=== PATIENT | male | born 1990 | race Hispanic/Latino ===

== ENCOUNTER 2019-11-12 18:06 | Inpatient (IN) | payer SELFPAY ==
[2019-11-12] MEDS ORDERED: ACETAMINOPHEN 325 MG TABLET ONE (19:45)
[2019-11-12] MEDS ORDERED: MORPHINE 2 MG/ML SYR ONE (19:46)
[2019-11-12] MEDS ORDERED: ONDANSETRON 4 MG/2 ML VIAL ONE ×2 (19:46→22:33)
[2019-11-12] MEDS ORDERED: NA CHLORIDE 0.9% 2,000 ML ONE (19:46)
[2019-11-12 20:04] LABS: Urine Blood 1+ (NEG); Urine Glucose NEGATIVE (NEG); Urine Protein 1+ (NEG); Urine Specific Gravity 1.025 (1.005-1.030)
[2019-11-12 20:06] LABS: Albumin 3.5 g/dL (3.4-5.0); Bilirubin Direct 0.2 mg/dL (0-0.2); Bilirubin Total 0.7 mg/dL (0.2-1.0); Potassium 4.2 mmol/L (3.5-5.1); Protein, Total 9.1 g/dL (6.4-8.2)
[2019-11-12 20:21] LABS: Absolute Lymphocytes (CBC) 1.8 K/uL (0.7-4.9); Basophils % 0.4 % (0-1.3); Hematocrit 39.9 % (39.6-49.0); Lymphocytes % 9.2 % (15.3-44.8); RBC Red Blood Cell Count 4.35 M/uL (4.33-5.43)
--- NOTE | 2019-11-12 20:52 | RAD REPORT ---
EXAM DESCRIPTION: CTAbdomen Pelvis W Contrast - 11/12/2019 8:31 pm CLINICAL HISTORY: Abdominal pain. ABD PAIN COMPARISON: No comparisons TECHNIQUE: Biphasic CT imaging of the abdomen and pelvis was performed with 100 ml non-ionic IV cont rast. All CT scans are performed using dose optimization technique as appropriate and may include automated exposure control or mA/KV adjustment according to patient size. FINDINGS: The lung bases are clear. The liver, spleen, pancreas, adrenal glands and kidneys are within normal limits. No bowel obstruction, free air, free fluid or abscess. There is moderate inflammation adjacent to sev eral diverticula in the descending colon. There is thickening of the adjacent fascia with small perid iverticular abscess is present measuring 14 x 7 mm within the fascia abutting the left psoas muscle. The findings likely indicate diverticulitis. The appendix is normal. No evidence of significant lymp hadenopathy. No suspicious bony findings. IMPRESSION: Moderate diverticulitis of the descending colon is suspected several small peridiverticu lar adjacent abscesses within the fascia. The small abscesses would not be amenable to percutaneous d rainage.
--- NOTE | 2019-11-12 20:56 | RAD REPORT ---
EXAM DESCRIPTION: RAD - Chest Single View - 11/12/2019 8:31 pm CLINICAL HISTORY: ABDOMINAL DISTENTION Chest pain. COMPARISON: No comparisons FINDINGS: Portable technique limits examination quality. The lungs are grossly clear. The heart is normal in size. No displaced fractures. IMPRESSION: No acute intrathoracic process suspected.
--- NOTE | 2019-11-12 21:29 | EDPHYS ---
Physician Documentation [facility] Name: Vlad Ramos Age: 29 yrs Sex: Male : 1990 Arrival Date: 11/12/2019 Time: 18:10 Bed 14 Private MD: ED Physician Patrick Ken HPI: 11/11 19:32 This 29 yrs old Male presents to ER via Ambulatory with complaints of sheree Abdominal Pain. 19:32 The patient presents with abdominal pain in the upper abdomen, in the left upper sheree quadrant, in the left lower quadrant, abdominal distention in the upper abdomen, in the lower abdomen. Onset: The symptoms/episode began/occurred 5 day(s) ago. The symptoms do not radiate. Associated signs and symptoms: none. The symptoms are described as constant, crampy. Modifying factors: The symptoms are alleviated by nothing, the symptoms are aggravated by movement, pressure. Severity of pain: At its worst the pain was moderate in the emergency department the pain is unchanged. The patient has not experienced similar symptoms in the past. Historical: - Allergies: 18:24 No Known Allergies; ll1 - PSHx: 18:24 None; ll1 - Immunization history:: Adult Immunizations up to date, Flu vaccine is up to date. - Social history:: Smoking status: Patient denies any tobacco usage or history of. Patient/guardian denies using alcohol, street drugs, tobacco products. - Family history:: not pertinent. ROS: 19:32 Eyes: Negative for injury, pain, redness, and discharge, ENT: Negative for injury, sheree pain, and discharge, Neck: Negative for injury, pain, and swelling, Cardiovascular: Negative for chest pain, palpitations, and edema, Respiratory: Negative for shortness of breath, cough, wheezing, and pleuritic chest pain, Back: Negative for injury and pain, : Negative for injury, bleeding, discharge, and swelling, MS/Extremity: Negative for injury and deformity, Skin: Negative for injury, rash, and discoloration, Neuro: Negative for headache, weakness, numbness, tingling, and seizure, Psych: Negative for depression, anxiety, suicide ideation, homicidal ideation, and hallucinations, Allergy/Immunology: Negative for hives, rash, and allergies, Endocrine: Negative for neck swelling, polydipsia, polyuria, polyphagia, and marked weight changes, Hematologic/Lymphatic: Negative for swollen nodes, abnormal bleeding, and unusual bruising. 19:32 Constitutional: Positive for fever, malaise. 19:32 Abdomen/GI: Positive for abdominal pain, of the left upper quadrant and left lower quadrant. Exam: 19:32 Head/Face: Normocephalic, atraumatic. Eyes: Pupils equal round and reactive to light, sheree extra-ocular motions intact. Lids and lashes normal. Conjunctiva and sclera are non-icteric and not injected. Cornea within normal limits. Periorbital areas with no swelling, redness, or edema. ENT: Nares patent. No nasal discharge, no septal abnormalities noted. Tympanic membranes are normal and external auditory canals are clear. Oropharynx with no redness, swelling, or masses, exudates, or evidence of obstruction, uvula midline. Mucous membranes moist. Neck: Trachea midline, no thyromegaly or masses palpated, and no cervical lymphadenopathy. Supple, full range of motion without nuchal rigidity, or vertebral point tenderness. No Meningismus. Chest/axilla: Normal chest wall appearance and motion. Nontender with no deformity. No lesions are appreciated. Respiratory: Lungs have equal breath sounds bilaterally, clear to auscultation and percussion. No rales, rhonchi or wheezes noted. No increased work of breathing, no retractions or nasal flaring. Back: No spinal tenderness. No costovertebral tenderness. Full range of motion. Male : Normal genitalia with no discharge or lesions. Skin: Warm, dry with normal turgor. Normal color with no rashes, no lesions, and no evidence of cellulitis. MS/ Extremity: Pulses equal, no cyanosis. Neurovascular intact. Full, normal range of motion. Neuro: Awake and alert, GCS 15, oriented to person, place, time, and situation. Cranial nerves II-XII grossly intact. Motor strength 5/5 in all extremities. Sensory grossly intact. Cerebellar exam normal. Normal gait. Psych: Awake, alert, with orientation to person, place and time. Behavior, mood, and affect are within normal limits. 19:32 Constitutional: The patient appears febrile. 19:32 Abdomen/GI: Inspection: abdomen appears normal, Bowel sounds: normal, Palpation: moderate abdominal tenderness, in the epigastric area, anterior aspect of left lateral abdomen, posterior aspect of left lateral abdomen, left upper quadrant and left lower quadrant, Liver: no appreciated palpable abnormalities, Hernia: not appreciated. Vital Signs: 18:19 BP 129 / 81; Pulse 121; Resp 19; Temp 101.2; Pulse Ox 97% ; Weight 76.2 kg; Height 5 ll1 ft. 8 in. (172.72 cm); Pain 6/10; 19:17 BP 131 / 85; Pulse 112; Resp 18; Temp 100.9; Pulse Ox 97% ; ll1 21:00 BP 127 / 76; Pulse 111; Resp 20; Pulse Ox 99% on R/A; vc 22:00 BP 126 / 78; Pulse 102; Resp 19; Pulse Ox 97% on R/A; vc 23:00 BP 117 / 74; Pulse 96; Resp 20; Temp 100.0(O); Pulse Ox 98% on R/A; vc 18:19 Body Mass Index 25.54 (76.20 kg, 172.72 cm) ll1 MDM: 19:11 Patient medically screened. [facility] 19:34 Data reviewed: vital signs, nurses notes, lab test result(s), radiologic studies, CT sheree scan, plain films. Data interpreted: credit collector: rate is 112 beats/min, rhythm is normal sinus rhythm, Pulse oximetry: on room air is 97 %. Test interpretation: by ED physician or midlevel provider: plain radiologic studies. Counseling: I had a detailed discussion with the patient and/or guardian regarding: the historical points, exam findings, and any diagnostic results supporting the discharge/admit diagnosis, lab results, radiology results, the need for further work-up and treatment in the hospital. Medication response: Zofran partially relieved the patient's nausea. 21:30 Differential diagnosis: appendicitis, bowel obstruction, cholecystitis, Cholelithiasis, sheree diverticulitis, Peritonitis, urinary tract infection. Physician consultation: Shen Ledbetter MD and will see patient in inpatient room. Transition of care: After a detail discussion of the patient's case, care is transferred to Justyna Hunter MD. ED course: dw dr ledbetter, give Rocephin push, start on levofloxacin and Flagyl , admit to dr hunter, consult me, explained plan to patient, voiced undestanding. 11/11 19:32 Order name: Basic Metabolic Panel; Complete Time: 20:52 [facility] 11/11 19:32 Order name: CBC with Diff [facility] 11/11 19:32 Order name: Hepatic Function; Complete Time: 20:52 [facility] 11/11 19:32 Order name: Lipase; Complete Time: 20:52 [facility] 11/11 19:32 Order name: Urine Culture [facility] 11/11 19:58 Order name: Urine Dipstick--Ancillary (enter results); Complete Time: 20:20 [facility] 11/11 19:32 Order name: Chest Single View XRAY; Complete Time: 21:25 [facility] 11/11 19:32 Order name: CT Abd/Pelvis - IV Contrast Only; Complete Time: 21:25 [facility] 11/11 21:58 Order name: CBC Smear Scan EDMD 11/11 21:58 Order name: Manual Differential [facility] 11/11 19:32 Order name: IV Saline Lock; Complete Time: 19:46 [facility] 11/11 19:32 Order name: Labs collected and sent; Complete Time: 19:46 [facility] 11/11 19:32 Order name: Urine Dipstick-Ancillary (obtain specimen); Complete Time: 19:46 [facility] 11/11 22:31 Order name: CONS Physician Consult [facility] 11/11 22:31 Order name: NPO EDMS Administered Medications: 19:52 Drug: NS 0.9% 1000 ml Route: IV; Rate: 1 bolus; Site: right antecubital; vc 19:52 Drug: Tylenol 650 mg Route: PO; vc 20:39 Follow up: Response: No adverse reaction vc 19:52 Drug: morphine 2 mg Route: IVP; Site: right antecubital; vc 20:39 Follow up: Response: No adverse reaction vc 19:54 Drug: Zofran (Ondansetron) 4 mg Route: IVP; Site: right antecubital; vc 20:39 Follow up: Response: No adverse reaction vc 20:24 Drug: NS 0.9% 1000 ml Route: IV; Rate: 1 bolus; Site: right antecubital; vc 22:25 Drug: levofloxacin 750 mg Volume: 150 ml; Route: IVPB; Infused Over: 90 mins; Site: vc right antecubital; 22:25 Drug: Flagyl 500 mg Volume: 100 ml; Route: IVPB; Rate: 200 ml/hr; Infused Over: 30 vc mins; Site: right antecubital; 22:30 Drug: Rocephin 2 grams Route: IV; Rate: per protocol; Site: right antecubital; vc 23:00 Follow up: IV Status: Completed infusion; IV Intake: 50ml vc 22:40 Drug: Zofran (Ondansetron) 4 mg Route: IVP; Site: right antecubital; vc 23:00 Follow up: Response: No adverse reaction vc Disposition: 11/12/19 21:29 Hospitalization ordered by Justyna Hunter for Inpatient Admission. Preliminary diagnosis are Abdominal tenderness, Fever, unspecified, Diverticulitis of large intestine with perforation and abscess without bleeding, Elevated white blood cell count. - Bed requested for Telemetry/MedSurg (Inpatient). - Status is Inpatient Admission. vc - Condition is Fair. - Problem is new. - Symptoms have improved. Signatures: Dispatcher [employer] EDMS Kenya Hernandez RN RN mw Anderson, Corey, MD MD cha Calcote, Vanessa, RN RN vc Lewis, Lynsay, RN RN ll1 Corrections: (The following items were deleted from the chart) 22:34 21:29 Hospitalization Ordered by Justyna Hutner MD for Inpatient Admission. Preliminary mw diagnosis is Abdominal tenderness; Fever, unspecified; Diverticulitis of large intestine with perforation and abscess without bleeding; Elevated white blood cell count. Bed requested for Telemetry/MedSurg (Inpatient). Status is Inpatient Admission. Condition is Fair. Problem is new. Symptoms have improved. [facility] 23:47 22:34 11/12/2019 21:29 Hospitalization Ordered by Justyna Hunter MD for Inpatient vc Admission. Preliminary diagnosis is Abdominal tenderness; Fever, unspecified; Diverticulitis of large intestine with perforation and abscess without bleeding; Elevated white blood cell count. Bed requested for Telemetry/MedSurg (Inpatient). Status is Inpatient Admission. Condition is Fair. Problem is new. Symptoms have improved. mw
--- NOTE | 2019-11-12 21:29 | ER ---
Nurse's Notes [facility] Name: Vlad Ramos Age: 29 yrs Sex: Male : 1990 Arrival Date: 11/12/2019 Time: 18:10 Bed 14 Private MD: Diagnosis: Abdominal tenderness;Fever, unspecified;Diverticulitis of large intestine with perforation and abscess without bleeding;Elevated white blood cell count Presentation: 11/11 18:19 Chief complaint: Patient states: LLQ/left flank pain for 10 days. Fever 100.7 at home. ll1 Had ultrasound, states the ultrasound that was negative for kidney stones. Coronavirus screen: Proceed with normal triage. Patient denies a cough. Patient denies shortness of breath or difficulty breathing. Patient denies measured and/or subjective temperature greater than 100.4F prior to today's visit. Patient denies travel on a cruise ship or to a country the [facility] currently lists as an affected area. Patient denies contact with known and/or suspected case of COVID-19. Ebola Screen: Patient denies travel to an Ebola-affected area in the 21 days before illness onset. Initial Sepsis Screen: Does the patient meet any 2 criteria? HR > 90 bpm. Does the patient have a suspected source of infection? No. Patient's initial sepsis screen is negative. Risk Assessment: Do you want to hurt yourself or someone else? Patient reports no desire to harm self or others. Onset of symptoms was November 02, 2019. 18:19 Method Of Arrival: Ambulatory [facility] 18:19 Acuity: BARRY 3 ll1 19:18 Initial Sepsis Screen: Does the patient meet any 2 criteria? Temp <36.0*C (96.8*F)) or ll1 > 38.3*C (100.9*F). HR > 90 bpm. Yes Does the patient have a suspected source of infection? Yes: Acute abdominal pain. 19:19 Note sepsis alert called at 1917 when brought back to room 14. ll1 Triage Assessment: 19:30 General: Appears in no apparent distress. uncomfortable, ill, Behavior is calm, vc cooperative, appropriate for age. Pain: Complains of pain in epigastric area and left lower quadrant and left upper quadrant Pain does not radiate. Pain currently is 10 out of 10 on a pain scale. Quality of pain is described as sharp, stabbing, Pain began 10 days Noted to be grimacing, guarding, moaning. 19:30 GI: Reports lower abdominal pain, upper abdominal pain, nausea. vc Historical: - Allergies: 18:24 No Known Allergies; ll1 - PSHx: 18:24 None; ll1 - Immunization history:: Adult Immunizations up to date, Flu vaccine is up to date. - Social history:: Smoking status: Patient denies any tobacco usage or history of. Patient/guardian denies using alcohol, street drugs, tobacco products. - Family history:: not pertinent. Screenin:30 Abuse screen: Denies threats or abuse. Nutritional screening: No deficits noted. vc Tuberculosis screening: No symptoms or risk factors identified. Fall Risk None identified. Assessment: 19:30 GI: Bowel sounds present X 4 quads. Abd is soft Abdomen is tender to palpation X 4 vc quads. Vital Signs: 18:19 BP 129 / 81; Pulse 121; Resp 19; Temp 101.2; Pulse Ox 97% ; Weight 76.2 kg; Height 5 ll1 ft. 8 in. (172.72 cm); Pain 6/10; 19:17 BP 131 / 85; Pulse 112; Resp 18; Temp 100.9; Pulse Ox 97% ; ll1 21:00 BP 127 / 76; Pulse 111; Resp 20; Pulse Ox 99% on R/A; vc 22:00 BP 126 / 78; Pulse 102; Resp 19; Pulse Ox 97% on R/A; vc 23:00 BP 117 / 74; Pulse 96; Resp 20; Temp 100.0(O); Pulse Ox 98% on R/A; vc 18:19 Body Mass Index 25.54 (76.20 kg, 172.72 cm) ll1 ED Course: 18:10 Patient arrived in ED. fj1 18:23 Triage completed. ll1 18:24 Arm band placed on Patient notified of wait time. ll1 18:30 Patient has correct armband on for positive identification. Pulse ox on. NIBP on. vc 19:11 Patrick Ken MD is Attending Physician. [facility] 19:30 Initial lab(s) drawn, by vt, sent to lab. Urine collected: clean catch specimen, clear, jp3 theresa colored. Inserted saline lock: 20 gauge in right antecubital area, using aseptic technique. Blood collected. Patient maintains SpO2 saturation greater than 95% on room air. 19:35 Sharon Robles RN is Primary Nurse. vc 20:31 Chest Single View XRAY In Process Unspecified. EDMS 20:32 CT Abd/Pelvis - IV Contrast Only In Process Unspecified. EDMS 21:28 Justyna Tovar MD is Hospitalizing Provider. sheree 23:45 No provider procedures requiring assistance completed. Patient admitted, IV remains in vc place. Administered Medications: 19:52 Drug: NS 0.9% 1000 ml Route: IV; Rate: 1 bolus; Site: right antecubital; vc 19:52 Drug: Tylenol 650 mg Route: PO; vc 20:39 Follow up: Response: No adverse reaction vc 19:52 Drug: morphine 2 mg Route: IVP; Site: right antecubital; vc 20:39 Follow up: Response: No adverse reaction vc 19:54 Drug: Zofran (Ondansetron) 4 mg Route: IVP; Site: right antecubital; vc 20:39 Follow up: Response: No adverse reaction vc 20:24 Drug: NS 0.9% 1000 ml Route: IV; Rate: 1 bolus; Site: right antecubital; vc 22:25 Drug: levofloxacin 750 mg Volume: 150 ml; Route: IVPB; Infused Over: 90 mins; Site: vc right antecubital; 22:25 Drug: Flagyl 500 mg Volume: 100 ml; Route: IVPB; Rate: 200 ml/hr; Infused Over: 30 vc mins; Site: right antecubital; 22:30 Drug: Rocephin 2 grams Route: IV; Rate: per protocol; Site: right antecubital; vc 23:00 Follow up: IV Status: Completed infusion; IV Intake: 50ml vc 22:40 Drug: Zofran (Ondansetron) 4 mg Route: IVP; Site: right antecubital; vc 23:00 Follow up: Response: No adverse reaction vc Intake: 23:00 IV: 50ml; Total: 50ml. vc Outcome: 21:29 Decision to Hospitalize by Provider. sheree 23:46 Discharged to vc 23:46 Admitted to Med/surg accompanied by tech, room 228, Report called to KUNAL Mejia 23:46 Condition: good 23:46 Instructed on the need for admit, medication usage. 23:47 Patient left the ED. vc Signatures: Dispatcher [employer] EDMS Patrick Ken MD MD cha Pisarski, Jacob jp3 Sharon Robles RN RN Chris Steel Lynsay, RN RN ll1
[2019-11-12 21:57] LABS: Urine White Blood Cell Casts DIFF
[2019-11-12 21:58] LABS: Blood Morphology Comment NOT SEEN (NOT SEEN); Platelet Estimate ADEQ
[2019-11-12] MEDS ORDERED: Levofloxacin 750mg IV 750 MG/150 ML BAG IV ONE (22:17)
[2019-11-12] MEDS ORDERED: CEFTRIAXONE/SWI 1gm 2 GM/20 ML SYR ONE (22:18)
[2019-11-12] MEDS ORDERED: METRONIDAZOLE 500mg IVPB 500 MG/100 ML BAG IV ONE (22:18)
[2019-11-12] MEDS ORDERED: Levofloxacin500mg IV 500 MG/100 ML BAG IV SCH (23:00)
[2019-11-13 00:11] VITALS: BMI 27.6
[2019-11-13] MEDS: NA CHLORIDE 0.9% 1,000 ML IV SCH ×2 (00:27→09:23)
[2019-11-13] MEDS: HYDROMORPHONE HCL 0.5 MG/0.5 ML INJ IV PRN ×2 (01:33→08:20)
[2019-11-13 04:45] LABS: Protime INR 1.49
[2019-11-13 04:54] LABS: Hematocrit 39.4 % (39.6-49.0); Lymphocytes % 11.2 % (15.3-44.8); MPV 8.7 fL (7.6-11.3)
[2019-11-13 05:11] LABS: Albumin 2.8 g/dL (3.4-5.0); Bilirubin Total 0.5 mg/dL (0.2-1.0); Phosphorus 2.9 mg/dL (2.5-4.9); Potassium 4.1 mmol/L (3.5-5.1); Protein, Total 7.8 g/dL (6.4-8.2)
[2019-11-13] MEDS: METRONIDAZOLE 500mg IVPB 500 MG/100 ML BAG IV SCH ×2 (05:51)
[2019-11-13] MEDS: ENOXAPARIN 40 MG/0.4 ML SQ SCH (09:24)
--- NOTE | 2019-11-13 09:58 | P.HP ---
Certification for Inpatient Patient admitted to: Inpatient With expected LOS: >2 Midnights Patient will require the following post-hospital care: None Practitioner: I am a practitioner with admitting privileges, knowledge of patient current condition, hospital course, and medical plan of care. Services: Services provided to patient in accordance with Admission requirements found in Title 42 Section 412.3 of the Code of Federal Regulations Patient History Date of Service: 11/12/19 Reason for admission: Perforated diverticulum History of Present Illness: Patient is a 29-year-old gentleman who came to the hospital with abdominal pain. This is been going on for last 2 weeks. Symptoms have been gradually getting worse. He has had multiple evaluations done by 2 different physicians. 1 of the physicians thought it was muscle strain in the other thought they could be an infection. Allergies No Known Allergies Allergy (Verified 11/13/19 00:18) Home Medications: Amitriptyline [Elavil] 20 mg PO BEDTIME 11/13/19 Gabapentin 600 mg PO PRN PRN 11/13/19 Naproxen 250 mg PO PRN PRN 11/13/19 - Past Medical/Surgical History Has patient received pneumonia vaccine in the past: No -: PTSD -: Anxiety -: Depression - Family History Mother Medical History: Diabetes - Social History Smoking Status: Former smoker Alcohol use: No Caffeine use: Yes Place of Residence: Home Review of Systems 10-point ROS is otherwise unremarkable Physical Examination - Vital Signs Temperature: 99.5 F Blood Pressure: 125/69 Pulse: 106 Respirations: 18 Pulse Ox (%): 98 - Physical Exam General: Alert, In no apparent distress, Oriented x3 HEENT: Atraumatic, PERRLA, Mucous membr. moist/pink, EOMI, Sclerae nonicteric Neck: Supple, 2+ carotid pulse no bruit, No LAD, Without JVD or thyroid abnormality Respiratory: Clear to auscultation bilaterally, Normal air movement Cardiovascular: Regular rate/rhythm, Normal S1 S2, No murmurs Gastrointestinal: Normal bowel sounds, Soft and benign, Non-distended, Tenderness, Rebound Musculoskeletal: No clubbing, No swelling, No tenderness Integumentary: No rashes Neurological: Normal gait, Normal speech, Normal strength at 5/5 x4 extr, Normal tone, Sensation intact, Cranial nerves 3-12 intact, Normal affect Lymphatics: No axilla or inguinal lymphadenopathy - Studies Laboratory Data (last 24 hrs) 11/12/19 19:30: WBC 20.0 H, Hgb 13.3 L, Hct 39.9, Plt Count 301 11/12/19 19:30: Sodium 136, Potassium 4.2, BUN 18, Creatinine 1.13, Glucose 107 H, Total Bilirubin 0.7, AST 14 L, ALT 35, Alkaline Phosphatase 127 H, Lipase 67 L Assessment & Plan - Problems (Diagnosis) (1) Abdominal pain Current Visit: Yes Status: Acute (2) Perforated diverticulum Current Visit: Yes Status: Acute - Plan 1. Continue with IV hydration 2. Continue with IV antibiotics 3. Continue with pain control 4. NPO 5. General surgery consultation; 6. Serial H&H, and we will monitor CBC, BMP, LFTs and lipase along with electrolytes. 7. GI and DVT prophylaxis - Advance Directives Does patient have a Living Will: No Does patient have a Durable POA for Healthcare: No
--- NOTE | 2019-11-13 09:58 | P.PN ---
Subjective Date of Service: 11/13/19 Still with significant pain. Awaiting general surgery consultation Review of Systems 10-point ROS is otherwise unremarkable Physical Examination - Vital Signs Temperature: 99.5 F Blood Pressure: 125/69 Pulse: 106 Respirations: 18 Pulse Ox (%): 98 - Physical Exam General: Alert, In no apparent distress, Oriented x3 Respiratory: Clear to auscultation bilaterally, Normal air movement Cardiovascular: Regular rate/rhythm, Normal S1 S2, No murmurs Gastrointestinal: Normal bowel sounds, Soft and benign, Non-distended, No tenderness, No rebound, No guarding Musculoskeletal: No clubbing, No swelling, No tenderness Neurological: Sensation intact, Cranial nerves 3-12 intact - Studies Laboratory Data (last 24 hrs) 11/12/19 19:30: WBC 20.0 H, Hgb 13.3 L, Hct 39.9, Plt Count 301 11/12/19 19:30: Sodium 136, Potassium 4.2, BUN 18, Creatinine 1.13, Glucose 107 H, Total Bilirubin 0.7, AST 14 L, ALT 35, Alkaline Phosphatase 127 H, Lipase 67 L Assessment & Plan - Problems (Diagnosis) (1) Abdominal pain Current Visit: Yes Status: Acute (2) Perforated diverticulum Current Visit: Yes Status: Acute (3) Tachyarrhythmia Current Visit: Yes Status: Acute - Plan 1. Continue with IV hydration; will give fluid boluses; will check urine drug screen; monitor heart rate closely 2. Continue with IV antibiotics 3. Continue with pain control 4. NPO 5. General surgery consultation appreciated 6. Monitor labs closely 7. GI and DVT prophylaxis Discharge Plan: Home Plan to discharge in: Greater than 2 days - Advance Directives Does patient have a Living Will: No Does patient have a Durable POA for Healthcare: No - Code Status/Comfort Care Code Status Assessed: Yes Code Status: Full Code Critical Care: No Time Spent Managing PTS Care (In Minutes): 30
[2019-11-13] MEDS: PIPER/TAZO/NS 3.375gm 3.375 GM/100 ML BAG IVPB SCH ×3 (12:39→23:59)
[2019-11-13] MEDS: MORPHINE 2 MG/ML SYR IV PRN ×3 (12:40→21:35)
[2019-11-13] MEDS: D5 0.9 NS 1,000 ML IV SCH ×2 (12:40→23:58)
[2019-11-13] MEDS ORDERED: ONDANSETRON 4 MG/2 ML VIAL IV PRN (13:32)
--- NOTE | 2019-11-13 15:20 | CON ---
Date of Consultation: 11/13/2019 Brief History Of Present Illness: Patient is a 29-year-old male who comes to the hospital with compl aints of abdominal pain beginning approximately 2 weeks ago. He states the pain was predominantly in the epigastric region and then moved down to the left lower quadrant and he had significant worsenin g of symptoms. [facility] and told that he had a mu scle strain. He was trying warm packs and compresses. These did not improve his symptoms. As such, it got progressively worse. He had fever, chills, subjective temperature changes, but did not docum ent this specifically. He has had no change in his bowel or bladder habits. He has had some low-gra de nausea but no vomiting. No sick contacts, no recent travel. No new food exposures, no COVID expo sures by description. He came in with the symptoms worsening over multiple evaluations by multiple p susanans and ultimately was seen in the ER here. Past Medical History: Significant for PTSD, anxiety, depression, hypertension. Past Surgical History: Denies other than a scalp laceration repair from traumatic injury. Allergies: NO KNOWN DRUG ALLERGIES. Home Medications: Include amitriptyline, gabapentin, Naprosyn. Social History: He is a former smoker. Denies alcohol or recreational drug use. Review of Systems: 10-point review of systems other than HPI, denies. Physical Examination: Vital Signs: At the time of examination, his BMI is 27.7. His vital signs were a blood pressure 125 /69, pulse is 106, respiratory rate 18, temperature is 99.5. General: He is awake, alert, and oriented. Psychiatric: Appropriate, conversive. HEENT: Normocephalic. Sclerae icteric. Mucosa is moist. Oropharynx clear. Neck: Supple. No JVD. Chest: Normal expansion and excursion. Cardiovascular: Regular rate and rhythm. Pulmonary: Clear to auscultation bilaterally. Abdomen: Soft with left lower quadrant and left-sided abdominal tenderness. Tenderness in the supra pubic area is present, but pain is worse in the left side of the abdomen. Extremities: No clubbing, cyanosis, or edema. Skin: Warm and dry. Laboratory Data: Reveals a white blood cell count 18.3, hemoglobin 12.7, hematocrit of 39.4, platele t count is 259, neutrophils are 79%. His PT 17.4, INR 1.49, PTT is 36.0. His sodium is 138, potassi um 4.1, chloride 103, carbon dioxide 25, BUN 13, creatinine 0.9, glucose is 92. Lactic acid 1.5. Hi s calcium 8.2, phosphorus 2.9, magnesium 2.0, AST 9, ALT 27, alkaline phosphatase 110. His lipase is 56. His UA was 1+ blood and protein only. His CT scan of the abdomen and the pelvis was officially read as moderate diverticulitis. The descen ding colon was inspected, several small peridiverticular adjacent abscesses within the fascia. Small abscesses would not be amenable to percutaneous drainage. The appendix is normal. Assessment And Plan: This is a 29-year-old male who comes in with signs and symptoms of acute divert iculitis, Hinchey class 1. The sigmoid diverticular abscess is not amenable to percutaneous drainage . 1.IV fluid hydration. 2.N.p.o. status. 3.Antibiotic coverage. 4.Serial abdominal exams. I explained the risks, benefits, and alternatives of nonoperative versus operative management includi ng the possibility for placement of a colostomy should he require emergency surgery; however, we will attempt medical management at first and only if he fails medical management, we will consider operat ciarra intervention at that time. Additionally, I have explained the patient needs a colonoscopy as an outpatient after his episode of diverticulitis resolves should he successfully complete the medical m anagement. He displayed understanding of above stated plan. The patient agrees to proceed as indicated. DEIDRA/CHEVY Voice ID: [id number] Report ID: [id number]
[2019-11-13] MEDS ORDERED: Levofloxacin500mg IV 500 MG/100 ML BAG IV SCH (21:00)
[2019-11-13] MEDS ORDERED: FAMOTIDINE 20 MG/2 ML VIAL IV SCH (21:00)
[2019-11-13] MEDS ORDERED: ACETAMINOPHEN 500 MG TAB PO ONE (21:21)
[2019-11-13] MEDS ORDERED: HYDROCORTISONE SUC 100 MG INJ IV ONE (21:21)
[2019-11-14] MEDS: MORPHINE 2 MG/ML SYR IV PRN ×5 (02:18→21:05)
--- NOTE | 2019-11-14 04:30 | P.PN ---
Subjective Date of Service: 11/14/19 Patient is feeling somewhat better. Still having some pain on deep inspiration. Continue with IV antibiotic therapy. Await culture results. May repeat x-ray or CT prior to discharge. Anticipate discharge over the next 24-48 hours. Review of Systems 10-point ROS is otherwise unremarkable Physical Examination - Vital Signs Temperature: 99.5 F Blood Pressure: 125/69 Pulse: 106 Respirations: 18 Pulse Ox (%): 98 - Physical Exam General: Alert, In no apparent distress, Oriented x3 Respiratory: Clear to auscultation bilaterally, Normal air movement Cardiovascular: Regular rate/rhythm, Normal S1 S2, No murmurs Gastrointestinal: Normal bowel sounds, Soft and benign, Non-distended, Tenderness, Rebound, Guarding Musculoskeletal: No clubbing, No swelling, No tenderness Neurological: Normal tone, Sensation intact, Cranial nerves 3-12 intact - Studies Medications List Reviewed: Yes Assessment & Plan - Problems (Diagnosis) (1) Abdominal pain Current Visit: Yes Status: Acute (2) Perforated diverticulum Current Visit: Yes Status: Acute (3) Tachyarrhythmia Current Visit: Yes Status: Acute - Plan Continue with current plan of care as mentioned below: 1. Continue with IV hydration; 2. Continue with IV antibiotics 3. Continue with pain control 4. Clear liquid diet and advance slowly as tolerated 5. General surgery consultation appreciated 6. Monitor labs closely 7. GI and DVT prophylaxis Discharge Plan: Home Plan to discharge in: 24 Hours - Advance Directives Does patient have a Living Will: No Does patient have a Durable POA for Healthcare: No - Code Status/Comfort Care Code Status: Full Code Critical Care: No Time Spent Managing PTS Care (In Minutes): 25
[2019-11-14] MEDS: PIPER/TAZO/NS 3.375gm 3.375 GM/100 ML BAG IVPB SCH ×3 (05:58→16:15)
[2019-11-14 06:07] LABS: Protime INR 1.49
[2019-11-14 06:17] LABS: Absolute Lymphocytes (CBC) 1.4 K/uL (0.7-4.9); Basophils % 0.4 % (0-1.3); Hematocrit 32.4 % (39.6-49.0); Lymphocytes % 9.5 % (15.3-44.8); MPV 8.3 fL (7.6-11.3); RBC Red Blood Cell Count 3.54 M/uL (4.33-5.43)
[2019-11-14 06:22] LABS: BUN Blood Urea Nitrogen 9 mg/dL (7-18); Bicarbonate 27 mmol/L (21-32); Glucose Level 166 mg/dL (74-106); Magnesium 2.3 mg/dL (1.8-2.4); Phosphorus 4.2 mg/dL (2.5-4.9); Potassium 4.2 mmol/L (3.5-5.1); Sodium Level 138 mmol/L (136-145)
[2019-11-14] MEDS: ENOXAPARIN 40 MG/0.4 ML SQ SCH (08:00)
[2019-11-14] MEDS: D5 0.9 NS 1,000 ML IV SCH ×3 (08:06→20:00)
--- NOTE | 2019-11-14 14:23 | P.PN ---
Subjective Date of Service: 11/14/19 Chief Complaint: Perforated diverticulum Subjective: No new changes, Improving Physical Examination - Vital Signs Temperature: 99.5 F Blood Pressure: 125/69 Pulse: 106 Respirations: 18 Pulse Ox (%): 98 - Studies Microbiology Data (last 24 hrs): 11/12/19 19:45 Clean Catch Urine [place] Count - Final 11/12/19 19:45 Clean Catch Urine - Final No growth. Medications List Reviewed: Yes Assessment & Plan - Problems (Diagnosis) (1) Abdominal pain Current Visit: Yes Status: Acute (2) Perforated diverticulum Current Visit: Yes Status: Acute
--- NOTE | 2019-11-14 16:42 | P.PN ---
Date of Service: 11/14/19 Patient was seen and examined and findings were discussed with the patient and the family Leukocytosis trending down Pain controlled well Patient has bowel movement, denies any melena Appreciate help from surgery Continue antibiotics Monitor closely
[2019-11-15] MEDS: PIPER/TAZO/NS 3.375gm 3.375 GM/100 ML BAG IVPB SCH ×3 (00:39→16:51)
[2019-11-15] MEDS: MORPHINE 2 MG/ML SYR IV PRN ×3 (01:19→21:27)
[2019-11-15] MEDS: D5 0.9 NS 1,000 ML IV SCH ×3 (01:25→22:39)
[2019-11-15 04:12] LABS: Absolute Lymphocytes (CBC) 2.8 K/uL (0.7-4.9); Basophils % 0.6 % (0-1.3); Hematocrit 32.5 % (39.6-49.0); Lymphocytes % 30.6 % (15.3-44.8); MPV 8.3 fL (7.6-11.3); RBC Red Blood Cell Count 3.51 M/uL (4.33-5.43)
[2019-11-15 04:23] LABS: BUN Blood Urea Nitrogen 5 mg/dL (7-18); Bicarbonate 32 mmol/L (21-32); Glucose Level 139 mg/dL (74-106); Phosphorus 3.3 mg/dL (2.5-4.9); Potassium 3.6 mmol/L (3.5-5.1); Sodium Level 139 mmol/L (136-145)
[2019-11-15] MEDS ORDERED: POTASSIUM CL SA 10 MEQ TAB PO ONE (05:04)
--- NOTE | 2019-11-15 08:51 | P.PN ---
Subjective Date of Service: 11/14/19 Chief Complaint: Perforated diverticulum Subjective: Improving Physical Examination - Vital Signs Temperature: 97.2 F Blood Pressure: 109/66 Pulse: 68 Respirations: 16 Pulse Ox (%): 97 - Physical Exam General: Alert, In no apparent distress, Cooperative Gastrointestinal: Other (soft, continues to have LLQ TTP, but improving from prior) - Studies Microbiology Data (last 24 hrs): 11/12/19 19:45 Clean Catch Urine [place] Count - Final 11/12/19 19:45 Clean Catch Urine - Final No growth. Medications List Reviewed: Yes Assessment And Plan - Current Problems (Diagnosis) (1) Perforated diverticulum Current Visit: Yes Status: Acute Plan: - continue serial exams - incentive spirometry - antibiotic coverage with zosyn - ambulate with assist - start ice chips - will need colonoscopy as outpatient - discussed with patient - medical management - wean pain meds
[2019-11-15] MEDS: ENOXAPARIN 40 MG/0.4 ML SQ SCH (09:52)
--- NOTE | 2019-11-15 12:56 | P.PN ---
Subjective Date of Service: 11/15/19 Chief Complaint: Perforated diverticulum Subjective: No new changes, Improving (Abdominal pain is improving No fever or chills) Physical Examination - Vital Signs Temperature: 98.2 F Blood Pressure: 119/77 Pulse: 71 Respirations: 20 Pulse Ox (%): 98 - Physical Exam General: Alert, In no apparent distress HEENT: Atraumatic, Normocephalic Neck: Supple, 2+ carotid pulse no bruit Respiratory: Clear to auscultation bilaterally, Normal air movement Cardiovascular: Normal pulses, Regular rate/rhythm Capillary refill: <2 Seconds Gastrointestinal: Soft and benign, Tenderness Musculoskeletal: No clubbing, No swelling Integumentary: No rashes, No breakdown Neurological: Normal speech, Normal strength at 5/5 x4 extr Lymphatics: No axilla or inguinal lymphadenopathy Rectal: Deferred - Studies Laboratory Last Values WBC 20.0 K/uL (4.3-10.9) H 11/12/19 19:30 RBC 4.35 M/uL (4.33-5.43) 11/12/19 19:30 Hgb 13.3 g/dL (13.6-17.9) L 11/12/19 19:30 Hct 39.9 % (39.6-49.0) 11/12/19 19:30 MCV 91.6 fL (80-100) 11/12/19 19:30 MCH 30.5 pg (27.0-35.0) 11/12/19 19:30 MCHC 33.3 g/dL (32.0-36.0) 11/12/19 19:30 RDW 13.3 % (12.1-15.2) 11/12/19 19:30 Plt Count 301 K/uL (152-406) 11/12/19 19:30 MPV 9.0 fL (7.6-11.3) 11/12/19 19:30 Neutrophils % 83.0 % (41.7-73.7) H 11/12/19 19:30 Lymphocytes % 9.2 % (15.3-44.8) L 11/12/19 19:30 Monocytes % 7.3 % (3.3-12.3) 11/12/19 19:30 Eosinophils % 0.1 % (0-4.4) 11/12/19 19:30 Basophils % 0.4 % (0-1.3) 11/12/19 19:30 Absolute Neutrophils 16.6 K/uL (1.8-8.0) H 11/12/19 19: Segmented Neutrophils 82 % (40-80) H 11/12/19 19:30 Band Neutrophils 1 % (0-1) 11/12/19 19:30 Absolute Lymphocytes 1.8 K/uL (0.7-4.9) 11/12/19 19: Lymphocytes 11 % (15-42) L 11/12/19 19:30 Monocytes 6 % (0-10) 11/12/19 19:30 Absolute Monocytes 1.5 K/uL (0.1-1.3) H 11/12/19: Absolute Eosinophils 0.0 K/uL (0-0.5) 11/12/19 19: Absolute Basophils 0.1 K/uL (0-0.5) 11/12/19 19: Morphology Comment Not seen (NOT SEEN) 11/12/19 19: Sodium 136 mmol/L (136-145) 11/12/19 19:30 Potassium 4.2 mmol/L (3.5-5.1) 11/12/19 19: Chloride 101 mmol/L (98-107) 11/12/19: Carbon Dioxide 29 mmol/L (21-32) 11/12/19 19:30 BUN 18 mg/dL (7-18) 11/12/19 19: Creatinine 1.13 mg/dL (0.55-1.3) 11/12/19 19: Estimated GFR 76 mL/min (=/>90) L 11/12/19 19:30 Glucose 107 mg/dL (74-106) H 11/12/19 19:30 Calcium 9.4 mg/dL (8.5-10.1) 11/12/19 19: Total Bilirubin 0.7 mg/dL (0.2-1.0) 11/12/19 19: Direct Bilirubin 0.2 mg/dL (0-0.2) 11/12/19 19:30 AST 14 U/L (15-37) L 11/12/19:30 ALT 35 U/L (12-78) 11/12/19 19:30 Alkaline Phosphatase 127 U/L (45-117) H 11/12/19 19:30 Serum Total Protein 9.1 g/dL (6.4-8.2) H 11/12/19 19:30 Albumin 3.5 g/dL (3.4-5.0) 11/12/19 19:30 Globulin 5.6 g/dL (2.3-3.5) H 11/12/19 19:30 Albumin/Globulin Ratio 0.6 (1.1-1.8) L 11/12/19 19:30 Lipase 67 U/L (73-393) L 11/12/19 19:30 Urine pH 6.0 (5.0-7.0) 11/12/19 19:58 Ur Specific [place] 1.025 (1.005-1.030) 11/12/19 19:58 Glucose (UA)(Auto) Negative (NEG) 11/12/19 19:58 Urine Ketones Trace (NEG) 11/12/19 19:58 Urine Blood 1+ (NEG) H 11/12/19 19:58 Urine Nitrite Negative (NEG) 11/12/19 19:58 Ur Leukocyte Esterase Negative (NEG) 11/12/19 19:58 Urine Total Protein 1+ (NEG) H 11/12/19 19:58 Medications List Reviewed: Yes Assessment & Plan - Problems (Diagnosis) (1) Abdominal pain Current Visit: Yes Status: Acute (2) Perforated diverticulum Current Visit: Yes Status: Acute Physician Review Additional Text: Continue with current plan of care as mentioned below: 1. Continue with IV hydration; 2. Continue with IV antibiotics 3. Continue with pain control 4. Clear liquid diet and advance slowly as tolerated 5. General surgery consultation appreciated 6. Monitor labs closely 7. GI and DVT prophylaxis 11/15/2019 Leukocytosis trending down Pain controlled well Patient has bowel movement, denies any melena Appreciate help from surgery Continue antibiotics Monitor closely Will advance diet to clear liquid if okay with surgery Possible Dc in a.m. if clinically better Time Spent Managing Pts Care (In Minutes): 35
[2019-11-16] MEDS: MORPHINE 2 MG/ML SYR IV PRN (01:50)
[2019-11-16] MEDS: PIPER/TAZO/NS 3.375gm 3.375 GM/100 ML BAG IVPB SCH ×3 (01:50→17:00)
[2019-11-16 06:31] LABS: Potassium 3.9 mmol/L (3.5-5.1); Sodium Level 140 mmol/L (136-145)
[2019-11-16 06:34] LABS: BUN Blood Urea Nitrogen 4 mg/dL (7-18); Bicarbonate 30 mmol/L (21-32); Glucose Level 88 mg/dL (74-106)
[2019-11-16 06:37] LABS: Magnesium 2.1 mg/dL (1.8-2.4); Phosphorus 4.6 mg/dL (2.5-4.9)
[2019-11-16 07:09] LABS: Basophils % 0.6 % (0-1.3); Hematocrit 34.9 % (39.6-49.0); Lymphocytes % 46.7 % (15.3-44.8); MPV 8.4 fL (7.6-11.3); RBC Red Blood Cell Count 3.84 M/uL (4.33-5.43)
[2019-11-16] MEDS ORDERED: POTASSIUM CL SA 10 MEQ TAB PO ONE (09:00)
[2019-11-16] MEDS: ENOXAPARIN 40 MG/0.4 ML SQ SCH (09:15)
[2019-11-16 10:46] LABS: Blood Morphology Comment NOT SEEN (NOT SEEN); Platelet Estimate ADEQ
[2019-11-16 11:53] VITALS: O2SAT 97
[2019-11-16] MEDS: D5 0.9 NS 1,000 ML IV SCH (12:00)
[2019-11-16] MEDS ORDERED: GABAPENTIN 300 MG CAP PO PRN (15:54)
[2019-11-16 16:52] VITALS: BP 129/78; TEMP 98.2
--- NOTE | 2019-11-16 17:37 | P.DS ---
Admission Date: 11/12/19 Discharge Date: 11/16/19 Disposition: ROUTINE DISCHARGE Discharge Condition: GOOD Reason for Admission: Perforated diverticulum - Problems (1) Abdominal pain Current Visit: Yes Status: Acute (2) Perforated diverticulum Current Visit: Yes Status: Acute Brief History of Present Illness: 29-year-old gentleman who came to the hospital with abdominal pain. This is been going on for last 2 weeks. Symptoms have been gradually getting worse. He has had multiple evaluations done by 2 different physicians. 1 of the physicians thought it was muscle strain in the other thought they could be an infection. Hospital Course: Patient underwent CT scan which showed perforated diverticulum. He she was kept on NPO and was started on IV hydration along with IV antibiotics. Surgery was consulted who recommended conservative management with IV antibiotics. Leukocytosis trending down Pain controlled well Patient has bowel movement, denies any melena Appreciate help from surgery Continue antibiotics Monitor closely Will advance diet to clear liquid if okay with surgery Possible Dc if clinically better Vital Signs/Physical Exam: Temp Pulse Resp BP Pulse Ox 98.2 F 72 17 129/78 98 11/16/19 16:00 11/16/19 16:00 11/16/19 16:00 11/16/19 16:00 11/16/19 16:00 General: Alert, In no apparent distress HEENT: Atraumatic, Normocephalic Neck: Supple Respiratory: Clear to auscultation bilaterally, Normal air movement Cardiovascular: Normal pulses, Regular rate/rhythm Capillary refill: <2 Seconds Gastrointestinal: Soft and benign, W/out hepatosplenomegaly Musculoskeletal: No clubbing, No swelling Neurological: Normal speech, Normal strength at 5/5 x4 extr Lymphatics: No axilla or inguinal lymphadenopathy Laboratory Data at Discharge: WBC 6.5 K/uL (4.3-10.9) D 11/16/19 05:21 Hgb 11.6 g/dL (13.6-17.9) L 11/16/19 05:21 Hct 34.9 % (39.6-49.0) L 11/16/19 05:21 Plt Count 380 K/uL (152-406) D 11/16/19 05:21 PT 17.4 SECONDS (9.5-12.5) H 11/14/19 05:33 INR 1.49 11/14/19 05:33 APTT 36.0 SECONDS (24.3-36.9) 11/13/19 04:13 Sodium 140 mmol/L (136-145) 11/16/19 05:21 Potassium 3.9 mmol/L (3.5-5.1) 11/16/19 05:21 BUN 4 mg/dL (7-18) L 11/16/19 05:21 Creatinine 0.91 mg/dL (0.55-1.3) 11/16/19 05:21 Glucose 88 mg/dL (74-106) 11/16/19 05:21 Phosphorus 4.6 mg/dL (2.5-4.9) 11/16/19 05:21 Magnesium 2.1 mg/dL (1.8-2.4) 11/16/19 05:21 Total Bilirubin 0.5 mg/dL (0.2-1.0) 11/13/19 04:13 AST 9 U/L (15-37) L 11/13/19 04:13 ALT 27 U/L (12-78) 11/13/19 04:13 Alkaline Phosphatase 110 U/L (45-117) 11/13/19 04:13 Amylase 49 U/L (25-115) 11/13/19 04:13 Lipase 56 U/L (73-393) L 11/13/19 04:13 Home Medications: Amitriptyline [Elavil*] 20 mg PO BEDTIME 11/13/19 Gabapentin 600 mg PO PRN PRN 11/13/19 Naproxen 250 mg PO PRN PRN 11/13/19 Ciprofloxacin HCl [Cipro 500 MG Tablet] 500 mg PO BID #14 tab 11/16/19 metroNIDAZOLE [Flagyl] 500 mg PO Q8H #21 tablet 11/16/19 New Medications: Ciprofloxacin HCl [Cipro 500 MG Tablet] 500 mg PO BID #14 tab metroNIDAZOLE [Flagyl] 500 mg PO Q8H #21 tablet Diet: Regular Activity: Ad gerson Followup: Shen Ray MD [ACTIVE - CAN ADMIT] -
--- NOTE | 2019-11-16 19:23 | PN ---
Date of Progress Note: 11/16/2019 Subjective: Patient seen and examined. Chart reviewed and case discussed with RN and Dr. Ray. Patient started on full liquids today. Still has some pain in the left lower quadrant. Medications: List reviewed. Physical Examination: Vital Signs: Temperature 97.9, heart rate 75, blood pressure 121/73, respirations 18, O2 97% on room air. General: Awake, alert, oriented x3, in some mild distress ill-appearing male. CV: S1, S2. Regular rate and rhythm. Peripheral pulses present. Respiratory: Moving air well bilaterally. No wheezing or stridor. Gastrointestinal: Abdomen is soft. Tenderness to palpation in the left lower quadrant. Positive fo r voluntary guarding. No rebound tenderness. Extremities: No clubbing, cyanosis or edema. Neurologic: Nonfocal. Laboratory Data: Sodium 140, potassium 3.9, chloride 104, CO2 of 30, BUN 4, creatinine 0.91, glucose 88, calcium 8.7, phosphorus 4.6, magnesium 2.1. WBC 6.5, H and H 11.6 and 34.9, platelets 380, neut rophils 39%. Blood cultures, no growth to date. Urine cultures, no growth final. Assessment And Plan: 29-year-old male with 1.Abdominal pain, left lower quadrant secondary to perforated diverticulum, improving, tolerating fu ll liquids. 2.Perforated diverticulum. We will continue with IV antibiotics and IV fluids. Appreciate Dr. Lu tello's input. No surgical intervention at this time. We will monitor closely for signs of worsening. Patient has had a bowel movement. Denies any melena. WBC count has normalized. We will check abd ominal x-ray in a.m. to rule out any free air. Check lactate level in a.m. If tolerating full liquids, may be able to be discharged in a.m. if okay with Surgery. SA/MODL Voice ID: [id number] Report ID: [id number]
[2019-11-16] MEDS ORDERED: AMITRIPTYLINE 10 MG TAB PO SCH (21:00)
== END 2019-11-16 18:00 | disposition home or self-care (01) | DRG 392 ==
LOC: ER 18:06 → 2ND 22:27
PROVIDERS: ADMIT Hospitalist; ATTEND Family Medicine
DX: K57.20 Diverticulitis of large intestine with perforation and abscess without bleeding (principal); I10 Essential (primary) hypertension; R00.0 Tachycardia, unspecified; Z79.899 Other long term (current) drug therapy; Z87.891 Personal history of nicotine dependence
CPT/HCPCS: 36415; 71045; 74177; 80048; 80053; 80076; 81003; 82150; 83605; 83690; 83735; 84100; 84145; 85025; 85610; 85730; 87040; 87086; 87088; 96365; 96375; 99285; J0696; J1170; J1650; J1720; J2270; J2405; J2543; J7030; J7042; Q9967